=== PATIENT | female | born 1980 | race Caucasian/White ===

== ENCOUNTER 2017-05-06 19:58 | Emergency (ER) | payer OTHER ==
[~2017-05-06] VITALS: Ht 157.5 cm; Wt 62.0 kg
--- NOTE | 2017-05-06 20:22 | PD ---
HPI Chief Complaint: Psychiatric Symptoms Time Seen by Provider: 20:14 Travel History International Travel<30 days: No Contact w/Intl Traveler<30days: No History of Present Illness HPI 37-year-old female brought in by law enforcement under Dub[place] act. Patient was detained by law enforcement officers on the [facility] [place] where she stood on the side wall with the intent to jump but was talked down by bystanders. According to the PA paperwork she reported "being tired' of taking care of everything for everyone. Patient denies any medical complaints. [facility] Past Medical History Medical History: Denies Significant Hx Social History Tobacco Use: No Allergies-Medications (Allergen,Severity, Reaction): Coded Allergies: No Known Allergies (Verified Allergy, Unknown, 05/06/17) Reported Meds & Prescriptions Reported Meds & Active Scripts Active No Active Prescriptions or Reported Medications Review of Systems Except as stated in HPI: all other systems reviewed are Neg Physical Exam Narrative GENERAL: Well-nourished, well-developed female. SKIN: Focused skin assessment warm/dry. HEAD: Normocephalic. EYES: No scleral icterus. No injection or drainage. NECK: Supple, trachea midline. No JVD or lymphadenopathy. CARDIOVASCULAR: Regular rate and rhythm without murmurs, gallops, or rubs. RESPIRATORY: Breath sounds equal bilaterally. No accessory muscle use. GASTROINTESTINAL: Abdomen soft, non-tender, nondistended. MUSCULOSKELETAL: No cyanosis, or edema. PSYCHIATRIC: No delusional thought processes. No hallucinations. Data Data Last Documented VS Vital Signs Date Time Temp Pulse Resp B/P (MAP) Pulse Ox O2 Delivery O2 Flow Rate FiO2 05/08/17 11:00 05/08/17 06:32 98.2 80 16 100 Room Air Orders Orders Complete Blood Count With Diff (05/06/17 20:13) Comprehensive Metabolic Panel (05/06/17 20:13) Ed Urine Pregnancytest Poc (05/06/17 20:13) Psych Screen (05/06/17 20:13) Drug Screen, Random Urine (05/06/17 20:13) Alcohol (Ethanol) (05/06/17 20:13) Potassium Chloride (Kcl) (05/06/17 21:45) Diet Regular Basic (05/07/17 Breakfast) Diet Regular Basic (05/07/17 Lunch) Diet Regular Basic (05/07/17 Dinner) Diet Regular Basic (05/08/17 Breakfast) Labs Laboratory Tests Test 05/06/17 20:30 White Blood Count 9.8 TH/MM3 Red Blood Count 4.60 MIL/MM3 Hemoglobin 14.2 GM/DL Hematocrit 42.1 % Mean Corpuscular Volume 91.7 FL Mean Corpuscular Hemoglobin 30.9 PG Mean Corpuscular Hemoglobin Concent 33.7 % Red Cell Distribution Width 13.1 % Platelet Count 205 TH/MM3 Mean Platelet Volume 10.0 FL Neutrophils (%) (Auto) 62.9 % Lymphocytes (%) (Auto) 27.3 % Monocytes (%) (Auto) 8.5 % Eosinophils (%) (Auto) 0.7 % Basophils (%) (Auto) 0.6 % Neutrophils # (Auto) 6.1 TH/MM3 Lymphocytes # (Auto) 2.7 TH/MM3 Monocytes # (Auto) 0.8 TH/MM3 Eosinophils # (Auto) 0.1 TH/MM3 Basophils # (Auto) 0.1 TH/MM3 CBC Comment DIFF FINAL Differential Comment Blood Urea Nitrogen 10 MG/DL Creatinine 0.91 MG/DL Random Glucose 87 MG/DL Total Protein 7.8 GM/DL Albumin 3.9 GM/DL Calcium Level 8.9 MG/DL Alkaline Phosphatase 104 U/L Aspartate Amino Transf (AST/SGOT) 29 U/L Alanine Aminotransferase (ALT/SGPT) 26 U/L Total Bilirubin 0.3 MG/DL Sodium Level 139 MEQ/L Potassium Level 3.3 MEQ/L Chloride Level 106 MEQ/L Carbon Dioxide Level 24.3 MEQ/L Anion Gap 9 MEQ/L Estimat Glomerular Filtration Rate 70 ML/MIN Urine Opiates Screen NEG Urine Barbiturates Screen NEG Urine Amphetamines Screen NEG Urine Benzodiazepines Screen NEG Urine Cocaine Screen NEG Urine Cannabinoids Screen POS Ethyl Alcohol Level LESS THAN 3 MG/DL MDM Medical Decision Making Medical Screen Exam Complete: Yes Emergency Medical Condition: Yes Differential Diagnosis Suicidal ideation, depression, mood disorder, adjustment disorder Narrative Course 37-year-old female brought in by law enforcement under Dub[place] act after [place] was obtained [place] [address] [place] [address] where she apparently climbed up on the sea wall with the intent to jump. The patient was talked down by bystanders. She made statements to enforcement that she intended to jump due to family life stressors. She denies homicidal or suicidal ideation during interview. She has no medical complaints. Basic labs and toxicology screens ordered and pending. Once medically cleared patient will receive psychiatric evaluation. At the end of shift the patient was handed off to be managed by Dr. Nguyen. Please refer to her note regarding patient's continued care Scripts No Active Prescriptions or Reported Meds Zoe Arambula May 06, 2017 20:22
[2017-05-06 20:34] VITALS: BP 121/65; PULSE 82; RESP 14; TEMP 98.4; O2SAT 99
[2017-05-06 20:53] LABS: AUTOMATED NEUTROPHIL # 6.1 TH/MM3 (1.8-7.7); BASOPHIL # 0.1 TH/MM3 (0-0.2); BASOPHIL % 0.6 % (0.0-2.0); EOSINOPHIL # 0.1 TH/MM3 (0-0.4); EOSINOPHIL % 0.7 % (0.0-4.0); HEMATOCRIT 42.1 % (35.0-46.0); HEMO FLAGS DIFF FINAL; LYMPH % 27.3 % (9.0-44.0); LYMPHOCYTE # 2.7 TH/MM3 (1.0-4.8); MEAN CELL VOLUME 91.7 FL (80.0-100.0); MEAN CORPUSCULAR HEMOGLOBIN 30.9 PG (27.0-34.0); MEAN CORPUSCULAR HGB CONC 33.7 % (32.0-36.0); MONO % 8.5 % (0.0-8.0); NEUT % 62.9 % (16.0-70.0); PLATELET COUNT 205 TH/MM3 (150-450); RED CELL DISTRIBUTION WIDTH 13.1 % (11.6-17.2); WHITE BLOOD COUNT 9.8 TH/MM3 (4.0-11.0)
[2017-05-06 21:19] LABS: ANION GAP 9 MEQ/L (5-15); AST (GOT) 29 U/L (15-37); BICARBONATE 24.3 MEQ/L (21.0-32.0); BLOOD UREA NITROGEN 10 MG/DL (7-18); CHLORIDE 106 MEQ/L (98-107); GLOMERULAR FILTRATION RATE 70 ML/MIN (>89); POTASSIUM 3.3 MEQ/L (3.5-5.1); SODIUM (NA) 139 MEQ/L (136-145)
[2017-05-06 21:23] LABS: ALCOHOL LESS THAN 3 MG/DL (0-5); ALKALINE PHOSPHATASE 104 U/L (45-117); ALT (GPT) 26 U/L (10-53); TOTAL BILIRUBIN ADULT 0.3 MG/DL (0.2-1.0)
[2017-05-06] MEDS ORDERED: POTASSIUM CHLORIDE 10 MEQ CONTROLLED RELEASE TAB PO ONE (21:45)
[2017-05-07 02:27] VITALS: BP 95/53; PULSE 60; RESP 16; TEMP 98.3; O2SAT 99
[2017-05-07 11:46] VITALS: BP 115/63; PULSE 62; RESP 14
[2017-05-07 14:30] VITALS: BP 105/58; PULSE 58; RESP 18
[2017-05-07 18:00] VITALS: BP 108/56; PULSE 64; RESP 18
[2017-05-07 22:19] VITALS: BP 93/46; PULSE 56; RESP 16; TEMP 97.5; O2SAT 99
[2017-05-08 06:32] VITALS: BP 123/60; PULSE 80; RESP 16; TEMP 98.2; O2SAT 100
--- NOTE | 2017-05-08 09:38 | PD ---
History of Present Illness Chief Complaint: Psychiatric Symptoms Time Seen by Provider: 09:30 Travel History International Travel<30 Days: No Contact w/Intl Traveler<30days: No Known affected area: No Legal Status Legal Status: Dubois Act Dubois Act Signed By: Martin Amaya History of Present Illness: 37-year-old female brought in under a Dubois act for reportedly intending to jump off the [email or web address]. Patient is denying any intention of jumping off the bridge. She states she just needed "a good cry". She feels the bystander who held her misunderstood her tearfulness. She is somewhat bothered by the fact that the bystander appeared to be a transient who was trying to kiss her. She lives in [place] with her , a relationship of 9 years, and 4 children. She continues to report she has no intention of harming or killing herself or anyone else. She has no psychotic symptoms and her cognition is intact. She is verbally christophe for safety and she is competent to do so. PFSH Past Medical History Medical History: Denies Significant Hx Immunizations Current: Yes Tetanus Vaccination: Never Vaccinated Influenza Vaccination: No ?: Not Psychiatric History Psychiatric History Hx Psychiatric Treatment: DENIES History of Inpatient Treatment: No Guns or firearms in home: No Social History Hx Alcohol Use: Yes (occ) Hx Tobacco Use: Yes Hx Substance Use: No Hx of Substance Use Treatment: No Allergies-Medications (Allergen,Severity, Reaction): Coded Allergies: No Known Allergies (Verified Allergy, Unknown, 05/06/17) Reported Meds & Prescriptions Reported Meds & Active Scripts Active No Active Prescriptions or Reported Medications Review of Systems Except as stated in HPI: all other systems reviewed are Neg Exam Alert: Yes [place]: Person, Place, Date, Situation Mood: Calm Affect: Appropriate, Euthymic Speech: Clear, Logical Eye Contact: Normal Memory Intact: Immediate, Recent, Remote Insight/Judgement Adequate adequate MDM Medical Decision Making Medical Record Reviewed: Yes Assessment/Plan Patient interviewed at bedside, medical record reviewed and case discussed with nurse Rodriguez. This physician is aware the patient's story is questionable. Her comment that she is tired of taking care of everybody and crying on the [place] was discussed with her. Patient continues to maintain that she is not suicidal or homicidal. This physician feels after many hours of observation, the patient does not currently meet criteria for Dubois act or involuntary psychiatric hospitalization. Least restrictive alternative applies and the patient may be treated on an outpatient basis for stressors in her life. Toxicology screen noted to be positive for cannabis. Orders Orders Diet Regular Basic (05/07/17 Lunch) Diet Regular Basic (05/07/17 Dinner) Diet Regular Basic (05/08/17 Breakfast) Results Vital Signs Date Time Temp Pulse Resp B/P (MAP) Pulse Ox O2 Delivery O2 Flow Rate FiO2 05/08/17 06:32 98.2 80 16 123/60 (81) 100 Room Air 05/07/17 22:19 97.5 56 16 93/46 (62) 99 Room Air 05/07/17 18:00 64 18 108/56 (73) Room Air 05/07/17 14:30 58 18 105/58 (74) Room Air 05/07/17 11:46 62 14 115/63 (80) Diagnosis Primary Impression: Adjustment disorder with mixed disturbance of emotions and conduct Additional Impression: Cannabis abuse Prescriptions No Active Prescriptions or Reported Meds Problem Qualifiers Art Garcia MD May 08, 2017 09:38
--- NOTE | 2017-05-08 09:46 | PD ---
Physical Exam Time Seen by Provider: 09:44 Narrative Please refer to previous providers documentation for details regarding the patient's current visit. Data Data Last Documented VS Vital Signs Date Time Temp Pulse Resp B/P (MAP) Pulse Ox O2 Delivery O2 Flow Rate FiO2 05/08/17 06:32 98.2 80 16 123/60 (81) 100 Room Air Orders Orders Complete Blood Count With Diff (05/06/17 20:13) Comprehensive Metabolic Panel (05/06/17 20:13) Ed Urine Pregnancytest Poc (05/06/17 20:13) Psych Screen (05/06/17 20:13) Drug Screen, Random Urine (05/06/17 20:13) Alcohol (Ethanol) (05/06/17 20:13) Potassium Chloride (Kcl) (05/06/17 21:45) Diet Regular Basic (05/07/17 Breakfast) Diet Regular Basic (05/07/17 Lunch) Diet Regular Basic (05/07/17 Dinner) Diet Regular Basic (05/08/17 Breakfast) Labs Laboratory Tests Test 05/06/17 20:30 White Blood Count 9.8 TH/MM3 Red Blood Count 4.60 MIL/MM3 Hemoglobin 14.2 GM/DL Hematocrit 42.1 % Mean Corpuscular Volume 91.7 FL Mean Corpuscular Hemoglobin 30.9 PG Mean Corpuscular Hemoglobin Concent 33.7 % Red Cell Distribution Width 13.1 % Platelet Count 205 TH/MM3 Mean Platelet Volume 10.0 FL Neutrophils (%) (Auto) 62.9 % Lymphocytes (%) (Auto) 27.3 % Monocytes (%) (Auto) 8.5 % Eosinophils (%) (Auto) 0.7 % Basophils (%) (Auto) 0.6 % Neutrophils # (Auto) 6.1 TH/MM3 Lymphocytes # (Auto) 2.7 TH/MM3 Monocytes # (Auto) 0.8 TH/MM3 Eosinophils # (Auto) 0.1 TH/MM3 Basophils # (Auto) 0.1 TH/MM3 CBC Comment DIFF FINAL Differential Comment Blood Urea Nitrogen 10 MG/DL Creatinine 0.91 MG/DL Random Glucose 87 MG/DL Total Protein 7.8 GM/DL Albumin 3.9 GM/DL Calcium Level 8.9 MG/DL Alkaline Phosphatase 104 U/L Aspartate Amino Transf (AST/SGOT) 29 U/L Alanine Aminotransferase (ALT/SGPT) 26 U/L Total Bilirubin 0.3 MG/DL Sodium Level 139 MEQ/L Potassium Level 3.3 MEQ/L Chloride Level 106 MEQ/L Carbon Dioxide Level 24.3 MEQ/L Anion Gap 9 MEQ/L Estimat Glomerular Filtration Rate 70 ML/MIN Urine Opiates Screen NEG Urine Barbiturates Screen NEG Urine Amphetamines Screen NEG Urine Benzodiazepines Screen NEG Urine Cocaine Screen NEG Urine Cannabinoids Screen POS Ethyl Alcohol Level LESS THAN 3 MG/DL MDM Medical Record Reviewed: Yes Supervised Visit with VEL: No Narrative Course 37 year old female seen and evaluated by psychiatry. Silvino nicole as listed. With no further medical needs, patient will be discharged at this time. Diagnosis Primary Impression: Adjustment disorder with mixed disturbance of emotions and conduct Additional Impression: Cannabis abuse Referrals: [facility] (Out patient) Primary Care Physician Patient Instructions: Cannabis Abuse (ED), General Instructions Additional Instruction: Follow-up with a primary care provider Return immediately with any acute worsening of symptoms Med/Other Pt SpecificInfo: No Change to Meds Scripts No Active Prescriptions or Reported Meds Disposition: 01 DISCHARGE HOME Condition: Stable Peri Monroy May 08, 2017 09:46
== END 2017-05-08 11:33 | disposition home or self-care (01) ==
LOC: NEPD 19:58 → NEPJ 05-08 11:33
DX: F43.25 Adjustment disorder with mixed disturbance of emotions and conduct (principal); F12.10 Cannabis abuse, uncomplicated; Z72.0 Tobacco use
CPT/HCPCS: 80053; 80307; 84703; 85025; 99284